=== PATIENT | male | born 1960 | race Two or more races ===

== ENCOUNTER 2019-09-17 10:50 | Inpatient (IN) | payer OTHER ==
[~2019-09-17] VITALS: Ht 165.1 cm; Wt 82.1 kg
[2019-09-17 11:06] VITALS: Ht 165.1 cm; Wt 82.1 kg
[2019-09-17 12:59] LABS: BASOPHIL % 0.3 % (0-2); PLATELET COUNT 244 x10^3mcL (130-400); RED CELL DISTRIBUTION WIDTH 13.5 % (11.5-14.5)
[2019-09-17 13:26] LABS: CK-MB 3.1 ng/mL (0-3.6)
[2019-09-17 13:29] LABS: FREE T4 0.77 ng/dL (0.76-1.46); FREE THYROXINE INDEX 1.9 ug/dL (1.4-4.5); T3 TOTAL 0.9 ng/mL
[2019-09-17 13:39] LABS: CALCIUM 8.6 mg/dL (8.5-10.1); CARBON DIOXIDE 26.3 mmol/L (21-32); CHLORIDE SERUM 102 mmol/L (98-107); CREATININE SERUM 0.7 mg/dL (0.7-1.3); GFR1 > 60 mL/min; GLUCOSE SERUM 132 mg/dL (74-106); POTASSIUM SERUM 3.9 mmol/L (3.5-5.1); SODIUM SERUM 136 mmol/L (136-145)
[2019-09-17 13:44] LABS: ALBUMIN 3.5 g/dL (3.4-5.0); ALKALINE PHOSPHATASE 56 U/L (46-116); ALT/SGPT 40 U/L (16-63); AST/SGOT 28 U/L (15-37); BILIRUBIN TOTAL 1.3 mg/dL (0.20-1.00)
[2019-09-17 13:57] LABS: ERYTHROCYTE SED RATE 26 mm/hr (0-20)
[2019-09-17 16:42] LABS: CHOLESTEROL/HDL RATIO 2.7
[2019-09-17 18:59] VITALS: BP 129/86
[2019-09-17 21:51] VITALS: BP 104/58
[2019-09-18 00:46] LABS: microscopic required? NO
[2019-09-18 01:00] LABS: urine erythrocyte NEGATIVE (NEGATIVE)
[2019-09-18 01:10] LABS: AMPHETAMINE QUAL UR NONE DETECTED (See below)
[2019-09-18 06:30] VITALS: BP 100/72
[2019-09-18 07:32] LABS: BASOPHIL % 0.3 % (0-2); PLATELET COUNT 230 x10^3mcL (130-400); RED CELL DISTRIBUTION WIDTH 13.8 % (11.5-14.5)
[2019-09-18 08:39] VITALS: BP 117/65
[2019-09-18 08:45] LABS: CALCIUM 8.3 mg/dL (8.5-10.1); CHLORIDE SERUM 106 mmol/L (98-107); CREATININE SERUM 0.7 mg/dL (0.7-1.3); GFR1 > 60 mL/min; GLUCOSE SERUM 132 mg/dL (74-106); PHOSPHOROUS 2.7 mg/dL (2.5-4.9); SODIUM SERUM 139 mmol/L (136-145)
[2019-09-18] MEDS ORDERED: LEVOFLOXACIN500 M1 PO (08:56)
[2019-09-18] MEDS ORDERED: LAC PO (09:01)
[2019-09-18] MEDS ORDERED: IBU400 M2 PO (09:01)
[2019-09-18 12:40] VITALS: BP 126/61
[2019-09-18 13:54] VITALS: BP 126/61
[2019-09-18 17:15] VITALS: BP 125/69
[2019-09-18 20:22] VITALS: BP 105/51
[2019-09-19 04:30] VITALS: BP 107/69
[2019-09-19 07:18] VITALS: BP 115/64
[2019-09-19 08:52] LABS: BASOPHIL % 0.3 % (0-2); PLATELET COUNT 253 x10^3mcL (130-400); RED CELL DISTRIBUTION WIDTH 13.9 % (11.5-14.5)
[2019-09-19] MEDS ORDERED: CLINDAMYCIN150 M1 PO (10:47)
[2019-09-19] MEDS ORDERED: NAPROSYN500 MG PO (11:37)
[2019-09-19 11:39] VITALS: BP 126/61
[2019-09-19 12:48] LABS: ALBUMIN 3.4 g/dL (3.4-5.0); ALKALINE PHOSPHATASE 51 U/L (46-116); ALT/SGPT 29 U/L (16-63); AST/SGOT 11 U/L (15-37); BILIRUBIN DIRECT 0.14 mg/dL (0.0-0.2); BILIRUBIN TOTAL 0.8 mg/dL (0.20-1.00); CALCIUM 9.1 mg/dL (8.5-10.1); CHLORIDE SERUM 102 mmol/L (98-107); CREATININE SERUM 0.7 mg/dL (0.7-1.3); GFR1 > 60 mL/min; GLUCOSE SERUM 156 mg/dL (74-106); PHOSPHOROUS 2.7 mg/dL (2.5-4.9); POTASSIUM SERUM 3.7 mmol/L (3.5-5.1); SODIUM SERUM 139 mmol/L (136-145); TOTAL PROTEIN, SERUM 7.5 g/dL (6.4-8.2)
== END 2019-09-19 13:32 | disposition home or self-care (01) | DRG 720 ==
LOC: ED 10:50 → MU 15:32
PROVIDERS: Specialist; ADMIT Family Medicine
DX: A41.9 Sepsis, unspecified organism (principal); D72.829 Elevated white blood cell count, unspecified; E11.9 Type 2 diabetes mellitus without complications; E78.00 Pure hypercholesterolemia, unspecified; E78.5 Hyperlipidemia, unspecified; L03.114 Cellulitis of left upper limb; F17.210 Nicotine dependence, cigarettes, uncomplicated; I10 Essential (primary) hypertension; J45.909 Unspecified asthma, uncomplicated; E80.6 Other disorders of bilirubin metabolism; Z23 Encounter for immunization; Z79.899 Other long term (current) drug therapy
CPT/HCPCS: 36600; 82962; 83880; 84439; 90658; G0378; J1200; J2543; J3370; J7030; J7512; Q0092

== ENCOUNTER 2019-11-04 00:32 | Emergency (ER) | payer OTHER ==
[~2019-11-04] VITALS: Ht 167.6 cm; Wt 77.1 kg
[~2019-11-04 00:32] MED LIST: CLINDAMYCIN150 M1 PO; IBU400 M2 PO; LAC PO; LEVOFLOXACIN500 M1 PO; NAPROSYN500 MG PO
[2019-11-04 00:40] VITALS: Ht 167.6 cm; Wt 77.1 kg
[2019-11-04 03:56] VITALS: BP 137/82
== END 2019-11-04 03:56 | disposition home or self-care (01) ==
LOC: ED 00:32
DX: S16.1XXA Strain of muscle, fascia and tendon at neck level, initial encounter (principal); S60.511A Abrasion of right hand, initial encounter; S01.93XA Puncture wound without foreign body of unspecified part of head, initial encounter; I10 Essential (primary) hypertension; E11.9 Type 2 diabetes mellitus without complications; Z98.890 Other specified postprocedural states; W22.8XXA Striking against or struck by other objects, initial encounter; Y93.89 Activity, other specified; Y92.89 Other specified places as the place of occurrence of the external cause; Y99.8 Other external cause status
CPT/HCPCS: 90715

== ENCOUNTER 2020-01-20 19:25 | Emergency (ER) | payer OTHER ==
[~2020-01-20] VITALS: Ht 165.1 cm; Wt 87.5 kg
[2020-01-20 19:33] VITALS: Ht 165.1 cm; Wt 87.5 kg
[2020-01-20 20:52] LABS: BASOPHIL % 0.4 % (0-2); PLATELET COUNT 247 x10^3mcL (130-400); RED CELL DISTRIBUTION WIDTH 13.6 % (11.5-14.5)
[2020-01-20 21:01] LABS: CALCIUM 8.6 mg/dL (8.5-10.1); CARBON DIOXIDE 27.6 mmol/L (21-32); CHLORIDE SERUM 103 mmol/L (98-107); CREATININE SERUM 0.8 mg/dL (0.7-1.3); GFR1 > 60 mL/min; GLUCOSE SERUM 114 mg/dL (74-106); POTASSIUM SERUM 3.7 mmol/L (3.5-5.1); SODIUM SERUM 138 mmol/L (136-145)
[2020-01-20 21:05] LABS: ALBUMIN 3.6 g/dL (3.4-5.0); ALKALINE PHOSPHATASE 55 U/L (46-116); ALT/SGPT 28 U/L (16-63); AST/SGOT 15 U/L (15-37); BILIRUBIN TOTAL 0.5 mg/dL (0.20-1.00); TOTAL PROTEIN, SERUM 6.5 g/dL (6.4-8.2); URIC ACID 3.9 mg/dL (3.5-7.2)
[2020-01-20 22:03] VITALS: BP 133/89
[2020-01-20 22:06] LABS: microscopic required? NO
[2020-01-20 22:15] LABS: UA SPECIFIC GRAVITY 1.025 (1.005-1.035); urine erythrocyte NEGATIVE (NEGATIVE)
== END 2020-01-20 22:03 | disposition home or self-care (01) ==
LOC: ED 19:25
PROVIDERS: Emergency Medicine
DX: M79.661 Pain in right lower leg (principal); R22.41 Localized swelling, mass and lump, right lower limb; I11.0 Hypertensive heart disease with heart failure; E11.9 Type 2 diabetes mellitus without complications
CPT/HCPCS: 36415; Q0092